=== PATIENT | female | born 1965 | race Caucasian/White ===

== ENCOUNTER 2017-06-18 06:39 | Day surgery (SDC) | payer OTHER ==
[~2017-06-18] VITALS: Ht 152.4 cm; Wt 60.7 kg
[2017-06-18] MEDS ORDERED: OMEPRAZOLE (07:38)
[2017-06-18] MEDS ORDERED: GABAPENTIN (07:38)
[2017-06-18] MEDS ORDERED: MELOXICAM (07:38)
[2017-06-18] MEDS ORDERED: LIDOCAINE 4% SOLUTION 50 ML BTL ONE (07:47)
[2017-06-18] MEDS ORDERED: MIDAZOLAM 1 MG/ML 2 ML INJ ONE ×3 (08:37)
[2017-06-18] MEDS ORDERED: FENTAnyl 50 MCG/ML VIAL ONE (08:37)
--- NOTE | 2017-06-18 09:10 | OPPN ---
Date/Time of Note Date/Time of Note DATE: 06/18/17 TIME: 09:08 Proc Note GI Procedure Date 06/18/17 Indication: diagnostic Pre-procedure Diagnosis chronic heart burn screening colonoscopy Post-procedure Diagnosis gerd gastritis hemorrhoids Procedure Performed: Endoscopy, Colonoscopy Surgeon see signature line In Shop Service Technician none Anesthesia Type: moderate sedation Tourniquet Time none EBL none Transfusion required none Biopsy 1: gastric and esophageal bx Grafts/Implants none Tubes/Drains none Complication(s) none Disposition: home Procedure Description egd showed gerd gastritis colon showed hemorrhoids TORIBIO MARTINEZ MD Jun 18, 2017 09:10
--- NOTE | 2017-06-19 04:08 | GILP ---
DATE OF PROCEDURE: 06/18/2017 PROCEDURE: Colonoscopy. PREOPERATIVE DIAGNOSIS: Patient presenting with history of occult gastrointestinal bleeding, rule o ut colorectal neoplasm. This is a screening colonoscopy to rule out colon polyps. POSTOPERATIVE DIAGNOSES: Minimal internal hemorrhoids, moderate degree of external hemorrhoids. DESCRIPTION OF PROCEDURE: After informed written consent was obtained, the patient was asked to lie on the left lateral side and 5 mg Versed and 75 mcg of fentanyl was given as intravenous anesthesia . When the patient became somnolent, the Olympus video colonoscope was introduced into the rectum and scope was advanced all the way to the cecum. The entire colon appeared normal, no mucosal abnormali ty detected. No diverticulosis, no polyps noted. On the way out, further evaluation was carried ou t. Minimal internal hemorrhoids noted and moderate degree of external hemorrhoids were noted and th e procedure was terminated. PLAN: Recommend repeat colonoscopy in 10 years. Dictated By: TORIBIO MIRANDA/NTS Conf#: [id number] DID#: [id number] CC: Renetta BEST;*EndCC*
--- NOTE | 2017-06-19 04:08 | GILP ---
DATE OF PROCEDURE: PROCEDURE: Esophagogastroduodenoscopy. PREOPERATIVE DIAGNOSIS: Patient presenting with history of chronic heartburn, unresponsive to routi ne therapy, rule out gastroesophageal reflux disease, peptic ulcer disease. POSTOPERATIVE DIAGNOSES: Mild to moderate degree of reflux esophagitis and mild patchy gastritis. DESCRIPTION OF PROCEDURE: After the informed written consent was obtained, the patient was asked to lie on the left lateral side, 3 mg Versed and 50 mcg of fentanyl was given as intravenous anesthesi a. When the patient became somnolent, the Olympus video upper endoscope was introduced into the orophar ynx, then into the esophagus. Esophagus showed several areas of erosions arising from the GE juncti on. Multiple biopsies were obtained to rule out Yousif's esophagus. Scope at this time was advanc ed into the stomach. Stomach showed several areas of erythema with no ulcers, no neoplasm. Scope a t this time was advanced into the duodenum. Duodenum appeared perfectly normal with no duodenitis. No ulcer disease. Biopsy was done from the antrum, the lesser curvature and the fundus to rule out H. pylori infection. The scope was withdrawn and the procedure was terminated. PLAN: Recommend omeprazole 40 mg once a day and wait for the pathology report. Dictated By: TORIBIO MIRANDA/MACKENZIE Conf#: [id number] DID#: [id number] CC: Janene Jackson M.D.;*[facility]*
== END 2017-06-18 10:52 | disposition home or self-care (01) ==
LOC: GIL 06:39
PROVIDERS: ATTEND Internal Medicine Gastroenterology
DX: Z12.11 Encounter for screening for malignant neoplasm of colon (principal); K29.50 Unspecified chronic gastritis without bleeding; K21.0 Gastro-esophageal reflux disease with esophagitis; K64.8 Other hemorrhoids; K64.4 Residual hemorrhoidal skin tags
CPT/HCPCS: 43239; 45378; J2250; J3010; 88305; 88312